=== PATIENT | female | born 1985 | race Hispanic/Latino ===

== ENCOUNTER 2019-11-25 12:08 | Outpatient (CLI) | payer MEDICAID, SELFPAY ==
[2019-11-25] VITALS (10 sets, daily range): BP systolic 106–118; BP diastolic 70–84; PULSE 77–100; RESP 16; TEMP 36.9; O2SAT 100
[2019-11-25 13:18] LABS: Basophils Absolute Auto 0.1 K/mm3 (0.0-0.1); Basophils Percent Auto 0.5 % (0.2-1.2); Eosinophils Absolute Auto 0.2 K/mm3 (0-0.3); Eosinophils Percent Auto 1.7 % (0-4.4); Hematocrit 31.6 % (37.0-47.0); Hemoglobin 10.4 g/dL (12.0-15.0); Immature Granulocyte Absolute 0.14 K/mm3 (0.00-0.031); Immature Granulocyte Percent A 1.2 % (0-0.5); Lymphocytes Absolute Auto 2.57 K/mm3 (0.9-3.2); Lymphocytes Percent Auto 22.3 % (18.3-44.2); Mean Corpuscular HGB Conc 32.9 g/dl (32-36); Mean Corpuscular Hemoglobin 27.7 pg (26-34); Mean Platelet Volume 9.6 fl (7.4-10.4); Monocytes Absolute Auto 0.7 K/mm3 (0.1-0.6); Monocytes Percent Auto 6.2 % (2.6-8.5); Neutrophils Absolute Auto 7.8 K/mm3 (1.3-6.7); Neutrophils Percent Auto 68.1 % (45.5-73.1); Platelet Count Result 337 k/mm3 (150-375); Red Blood Count 3.76 M/mm3 (4.2-5.4); Red Cell Distribution Width 13.3 % (11.5-14.5); White Blood Count 11.5 K/mm3 (4.5-10.0)
[2019-11-25 13:22] LABS: Add Urine Microscopic? YES; Appearance Urine Clear (Clear); Bacteria Urine Trace /hpf; Bilirubin Urine Negative (Negative); Blood Urine Negative (Negative); Color Urine Yellow (Yellow); Glucose Urine UA Negative (Negative); Ketones Urine Negative (Negative); Leukocyte Esterase Ur 1+ LEU/UL (NEGATIVE); Mucus Urine Few /lpf; Nitrate Urine Negative (Negative); Protein Urine 1+ mg/dL (Negative); RBC Urine 0-2 /hpf (0-2); Squamous Epithelial Cell Urine Occasional /hpf (Few); Urobilinogen Urine Negative mg/dL (<2.0)
[2019-11-25 13:28] LABS: Alanine Aminotransferase 13 U/L (4-35); Albumin Level 3.6 g/dL (3.5-5.1); Alkaline Phosphatase 104 U/L (38-126); Aspartate Amino Transferase 17 U/L (14-36); Bilirubin,Total 0.2 mg/dL (0.2-1.3); Blood Urea Nitrogen 8 mg/dL (7-17); Carbon Dioxide 22 mmol/L (22-30); Chloride 106 mmol/L (98-107); Estimated Glomerular Filt Rate > 60; Glucose 70 mg/dL (65-105); Potassium 3.7 mmol/L (3.4-5.0); Sodium 134 mmol/L (137-145); Uric Acid 2.9 mg/dL (2.5-7.5)
[2019-11-25 14:58] LABS: Creatinine Urine 138.5 mg/dL; Total Protein Urine Random 12 mg/dL
== END 2019-11-25 14:40 | disposition home or self-care (01) ==
LOC: ANHOBOP 12:18 → ANHOBPP 12:18
PROVIDERS: Visit Provider Obstetrics & Gynecology
DX: O13.9 Gestational [pregnancy-induced] hypertension without significant proteinuria, unspecified trimester (principal)
CPT/HCPCS: 36415; 59025; 80053; 81001; 82570; 84156; 84550; 85025; 99199

== ENCOUNTER 2020-02-09 11:54 | Outpatient (CLI) | payer OTHER, SELFPAY ==
[2020-02-09] VITALS (7 sets, daily range): BP systolic 128–148; BP diastolic 88–99; PULSE 64–74
[2020-02-09 12:44] LABS: Basophils Absolute Auto 0.1 K/mm3 (0.0-0.1); Basophils Percent Auto 0.6 % (0.2-1.2); Eosinophils Absolute Auto 0.1 K/mm3 (0-0.3); Eosinophils Percent Auto 1.4 % (0-4.4); Hematocrit 34.9 % (37.0-47.0); Hemoglobin 11.6 g/dL (12.0-15.0); Immature Granulocyte Absolute 0.05 K/mm3 (0.00-0.031); Immature Granulocyte Percent A 0.6 % (0-0.5); Lymphocytes Absolute Auto 1.97 K/mm3 (0.9-3.2); Lymphocytes Percent Auto 24.7 % (18.3-44.2); Mean Corpuscular HGB Conc 33.2 g/dl (32-36); Mean Corpuscular Hemoglobin 27.8 pg (26-34); Mean Corpuscular Volume 83.7 fl (80-100); Monocytes Absolute Auto 0.5 K/mm3 (0.1-0.6); Monocytes Percent Auto 6.3 % (2.6-8.5); Neutrophils Absolute Auto 5.3 K/mm3 (1.3-6.7); Neutrophils Percent Auto 66.4 % (45.5-73.1); Platelet Count Result 244 k/mm3 (150-375); Red Blood Count 4.17 M/mm3 (4.2-5.4); Red Cell Distribution Width 13.8 % (11.5-14.5)
[2020-02-09 12:56] LABS: Alanine Aminotransferase 11 U/L (4-35); Albumin Level 3.1 g/dL (3.5-5.1); Alkaline Phosphatase 167 U/L (38-126); Anion Gap 8.1 mmol/L (7-16); Aspartate Amino Transferase 17 U/L (14-36); Bilirubin,Total 0.1 mg/dL (0.2-1.3); Blood Urea Nitrogen 10 mg/dL (7-17); Carbon Dioxide 21 mmol/L (22-30); Chloride 109 mmol/L (98-107); Estimated Glomerular Filt Rate > 60; Glucose 86 mg/dL (65-105); Potassium 4.1 mmol/L (3.4-5.0); Sodium 134 mmol/L (137-145); Uric Acid 4.7 mg/dL (2.5-7.5)
[2020-02-09 13:34] LABS: Creatinine Urine 72.7 mg/dL; Total Protein Urine Random 24 mg/dL
== END 2020-02-09 13:50 | disposition home or self-care (01) ==
LOC: ANHOBOP 11:59 → ANHOBPP 12:00
PROVIDERS: Visit Provider Obstetrics & Gynecology
DX: O13.9 Gestational [pregnancy-induced] hypertension without significant proteinuria, unspecified trimester (principal); Z3A.00 Weeks of gestation of pregnancy not specified
CPT/HCPCS: 36415; 59025; 80053; 82570; 84156; 84550; 85025; 99199

== ENCOUNTER 2020-02-18 12:48 | Outpatient (CLI) | payer OTHER, SELFPAY ==
[2020-02-18 13:18] LABS: Hematocrit 35.7 % (37.0-47.0); Mean Corpuscular HGB Conc 33.6 g/dl (32-36); Mean Corpuscular Hemoglobin 28.1 pg (26-34); Mean Corpuscular Volume 83.6 fl (80-100); Mean Platelet Volume 11.1 fl (7.4-10.4); Platelet Count Result 245 k/mm3 (150-375); Red Blood Count 4.27 M/mm3 (4.2-5.4); Red Cell Distribution Width 13.8 % (11.5-14.5); White Blood Count 7.8 K/mm3 (4.5-10.0)
[2020-02-18 13:29] LABS: Alanine Aminotransferase 10 U/L (4-35); Albumin Level 3.2 g/dL (3.5-5.1); Alkaline Phosphatase 158 U/L (38-126); Anion Gap 7.3 mmol/L (7-16); Aspartate Amino Transferase 19 U/L (14-36); Bilirubin,Total < 0.1 mg/dL (0.2-1.3); Blood Urea Nitrogen 11 mg/dL (7-17); Calcium 8.6 mg/dL (8.4-10.2); Carbon Dioxide 23 mmol/L (22-30); Chloride 108 mmol/L (98-107); Estimated Glomerular Filt Rate > 60; Glucose 74 mg/dL (65-105); Potassium 4.3 mmol/L (3.4-5.0); Sodium 134 mmol/L (137-145); Uric Acid 5.5 mg/dL (2.5-7.5)
[2020-02-18 16:36] LABS: Specific Gravity Ur 1.008; Total Volume 24 Hour Urine 3000 ml
[2020-02-18 19:44] LABS: Total Protein Urine 24 Hr 420 mg/24hr (0-149)
== END 2020-02-18 12:49 | disposition home or self-care (01) ==
PROVIDERS: Visit Provider Obstetrics & Gynecology
DX: O13.9 Gestational [pregnancy-induced] hypertension without significant proteinuria, unspecified trimester (principal); R80.9 Proteinuria, unspecified; Z3A.00 Weeks of gestation of pregnancy not specified
CPT/HCPCS: 36415; 80053; 81050; 84156; 84550; 85027

== ENCOUNTER 2020-02-23 12:05 | Outpatient (CLI) | payer OTHER, SELFPAY ==
[2020-02-23] VITALS (14 sets, daily range): BP systolic 135–169; BP diastolic 85–100; PULSE 58–75; RESP 16; TEMP 36.7
[2020-02-23 12:54] LABS: Basophils Absolute Auto 0.1 K/mm3 (0.0-0.1); Basophils Percent Auto 0.6 % (0.2-1.2); Eosinophils Absolute Auto 0.1 K/mm3 (0-0.3); Hematocrit 34.6 % (37.0-47.0); Hemoglobin 11.8 g/dL (12.0-15.0); Immature Granulocyte Absolute 0.04 K/mm3 (0.00-0.031); Immature Granulocyte Percent A 0.5 % (0-0.5); Lymphocytes Absolute Auto 1.94 K/mm3 (0.9-3.2); Lymphocytes Percent Auto 24.7 % (18.3-44.2); Mean Corpuscular HGB Conc 34.1 g/dl (32-36); Mean Corpuscular Hemoglobin 28.2 pg (26-34); Mean Corpuscular Volume 82.8 fl (80-100); Mean Platelet Volume 11.4 fl (7.4-10.4); Monocytes Absolute Auto 0.5 K/mm3 (0.1-0.6); Monocytes Percent Auto 6.4 % (2.6-8.5); Neutrophils Absolute Auto 5.2 K/mm3 (1.3-6.7); Neutrophils Percent Auto 66.8 % (45.5-73.1); Platelet Count Result 217 k/mm3 (150-375); Red Blood Count 4.18 M/mm3 (4.2-5.4); Red Cell Distribution Width 13.7 % (11.5-14.5); White Blood Count 7.9 K/mm3 (4.5-10.0)
[2020-02-23 13:01] LABS: Add Urine Microscopic? YES; Appearance Urine Cloudy (Clear); Bacteria Urine 4+ /hpf; Bilirubin Urine Negative (Negative); Blood Urine Negative (Negative); Color Urine Yellow (Yellow); Glucose Urine UA Negative (Negative); Ketones Urine Negative (Negative); Leukocyte Esterase Ur Trace LEU/UL (NEGATIVE); Mucus Urine Heavy /lpf; Nitrate Urine Negative (Negative); Protein Urine 3+ mg/dL (Negative); Specific Grav Ur 1.028 (1.001-1.035); Squamous Epithelial Cell Urine Few /hpf (Few); Urobilinogen Urine Negative mg/dL (<2.0); WBC Urine 21-30 /hpf (0-3)
[2020-02-23 13:05] LABS: Alanine Aminotransferase 10 U/L (4-35); Albumin Level 3.1 g/dL (3.5-5.1); Alkaline Phosphatase 160 U/L (38-126); Anion Gap 5 mmol/L (8-16); Aspartate Amino Transferase 19 U/L (14-36); Bilirubin,Total < 0.1 mg/dL (0.2-1.3); Blood Urea Nitrogen 11 mg/dL (7-17); Carbon Dioxide 20 mmol/L (22-30); Chloride 107 mmol/L (98-107); Estimated Glomerular Filt Rate > 60; Glucose 75 mg/dL (65-105); Potassium 4.2 mmol/L (3.4-5.0); Sodium 132 mmol/L (137-145); Uric Acid 5.7 mg/dL (2.5-7.5)
[2020-02-23] MEDS: ACETAMINOPHEN 500 MG TABLET 1000 MG PO (13:36)
[2020-02-23] MEDS: LABETALOL HCL 100 MG TABLET 200 MG PO (13:38)
--- NOTE | 2020-02-23 13:49 | PC.NURSE ---
called Dr. Armenta reported PIH lab result and BP. order received for tylenol and labetalol. will continue to monitor.
--- NOTE | 2020-02-23 14:58 | PC.NURSE ---
called Dr. Armenta updated BP. discharge order received with labetalol Rx.
== END 2020-02-23 15:10 | disposition home or self-care (01) ==
LOC: ANHOBOP 12:11 → ANHLDR 12:14
PROVIDERS: Visit Provider Obstetrics & Gynecology
DX: O13.9 Gestational [pregnancy-induced] hypertension without significant proteinuria, unspecified trimester (principal); Z3A.00 Weeks of gestation of pregnancy not specified
CPT/HCPCS: 36415; 59025; 80053; 81001; 84550; 85025; 87086; 87088; 99199; A9270

== ENCOUNTER 2020-03-01 10:10 | Inpatient (IN) | payer OTHER, SELFPAY ==
--- NOTE | 2020-02-27 13:46 | PM.IMHP ---
H&P: HPI History of Present Illness Date/Time: 02/27/20 13:46 Chief complaint: C Section Narrative: Kayla Rodríguez is a 34 year old female at 37 weeks coming for repeat C section and BTL due to h/o T incision on uterus with prior C section and mild preeclampsia. She also has GDMA1. She denies TEJADA or visual changes. Normal movement. Occasional contractions. No bleeding or leaking fluid. Review of Systems Review of Systems: All systems reviewed & are unremarkable except as noted in HPI and below PMFSH Past Medical History Medical History Anemia delivery delivered Disorder of thyroid Family History Family History Father Hypertension Social History Social History Smoking status: Never smoker Alcohol intake: never Substance use: never Gender identity (if verbalized by the patient): Female Spiritual care concerns: No Meds Home Medications and Allergies Home Medications Medication Instructions Recorded Confirmed Type PNV cmb#95-ferrous fumarate-FA 1 tablet PO 02/16/20 History [] aspirin [Aspirin Childrens] 02/16/20 History ergocalciferol (vitamin D2) 50,000 unit PO WEEKLY 02/16/20 02/16/20 History [Vitamin D2] ferrous sulfate 1 PO 02/16/20 History levothyroxine 25 mcg PO DAILY 02/16/20 02/16/20 History labetalol 200 mg PO Q12H #60 tablet 02/23/20 Rx Allergies Allergy/AdvReac Type Severity Reaction Status Date / Time No Known Allergies Allergy Mild Verified 02/23/20 11:10 Exam Const: General: no acute distress Resp: Auscultation: clear to auscultation bilaterally Cardio: Rate: regular rate Rhythm: regular rhythm GI: Inspection: non-distended GI Palp: Yes Soft to palpation and No Tenderness to palpation present (GI) : Bimanual exam- vagina & uterus: enlarged (gravid) Extrem: Right lower extremity: edema Left lower extremity: edema Psych: Mental Status: mental status grossly normal Assessment and Plan Assessment and plan (1) History of classical section: Code(s): Z98.891 - History of uterine scar from previous surgery Status: Acute Assessment and Plan: Proceed with repeat c section. she signed consent after the risks benefits complications and alternatives were discussed. She expressed understanding and wishes to proceed. (2) Mild preeclampsia: Code(s): O14.00 - Mild to moderate pre-eclampsia, unspecified trimester Status: Acute Assessment and Plan: Laboratory evaluation normal. 24 hour urine consistent with mild preeclampsia. No evidence of severe preeclampsia at this time. We will continue to monitor blood pressures and symptoms closely. (3) Sterilization: Code(s): Z30.2 - Encounter for sterilization Status: Acute Assessment and Plan: She wants BTL along with C section and signed IDPA consent
[2020-03-01] VITALS (71 sets, daily range): BP systolic 127–174; BP diastolic 82–115; PULSE 50–96; RESP 12–18; TEMP 36.5–36.8; O2SAT 97–100; BMI 40.6
--- NOTE | ~2020-03-01 | US_ITS ---
EXAMINATION: US OB limited DATE: 03/01/2020 17:46 INDICATION: Retained placenta. TECHNIQUE: Real-time ultrasound of the pelvis was performed. The interpreting radiologist was not pre sent for the study. COMPARISON: None. FINDINGS: The endometrial complex measures approximately 2.2 cm in thickness. There is mixed hypoechogenicity a nd anechoic fluid within the endometrial canal. No evident internal vascularity on color Doppler. IMPRESSION: 1. Thickened endometrial complex with heterogeneous echogenicity including anechoic fluid within the endometrial canal. Differential would include either clot or retained products of conception. Reviewed, dictated and finalized at location A. IMPRESSION: 1. Thickened endometrial complex with heterogeneous echogenicity including anec hoic fluid within the endometrial canal. Differential would include either clot or retained products of conception.
--- NOTE | 2020-03-01 10:22 | WPDANESEPPF ---
Anes - Initial Pre Proc Eval Procedure: Operation Date: 03/01/20 12:00 Proposed Procedures p Repeat Section with Bilateral Tubal Ligation - Jasmina Armenta MD Date/Time: 03/01/20 10:22 Surgeon: Jasmina Armenta MD Pre Op Diagnosis: C Section Patient Data Age: 34 Gender: F Height: Weight: Allergies Allergy/AdvReac Type Severity Reaction Status Date / Time No Known Allergies Allergy Mild Verified 02/23/20 11:10 Home Medications Medication Instructions Recorded Confirmed Type PNV cmb#95-ferrous fumarate-FA 1 tablet PO 02/16/20 History [] aspirin [Aspirin Childrens] 02/16/20 History ergocalciferol (vitamin D2) 50,000 unit PO WEEKLY 02/16/20 02/16/20 History [Vitamin D2] ferrous sulfate 1 PO 02/16/20 History levothyroxine 25 mcg PO DAILY 02/16/20 02/16/20 History labetalol 200 mg PO Q12H #60 tablet 02/23/20 Rx Patient hx anesthesia problems: none Family hx anesthesia problems: none PMFSH Past Medical History Medical History Anemia delivery delivered Disorder of thyroid Family History Family History Father Hypertension Social History Social History Smoking status: Never smoker Alcohol intake: never Substance use: never Gender identity (if verbalized by the patient): Female Spiritual care concerns: No Anes - Eval Final PreProcedure Day of Procedure 03/01/20 10:22 Patient weight: obese Heart: regular rate and rhythm Lungs: clear to auscultation and normal air movement Airway: Mallampati scale class II Neurological: alert and oriented Last oral intake: >/= 8 hours ASA classification: II Emergent: no Anesthetic plan: proceed Anesthesia type and monitoring: regional spinal Informed Consent: The patient's anesthetic plan and its attendant risks and benefits were discussed with the patient/family/POA. Questions were solicited and answers provided to the satisfaction of the patient/family/POA.
[2020-03-01] MEDS: LACTATED RINGERS 1,000 ML 999 ML IV CONT (10:50)
--- NOTE | 2020-03-01 10:52 | LDADM ---
This patient, Kayla Rodríguez, was admitted to Labor/Delivery/Recovery 119 on 03/01/20 at 10:10. Plans for labor, pain management and were discussed with patient. Patient/family oriented to hospital policies and general routines including ID bracelet, bed and alarms, visiting hours, pain management, procedures, bathroom and other care routines, personal items, smoking policy, room service/diet and guest tray routines, infant security routines, and visiting hours. Patient/Family are encouraged to report perceived risks to care and to ask questions if they do not understand what they are told or what they should do. See OBIX for further documentation.
[2020-03-01 11:02] LABS: Hematocrit 34.9 % (37.0-47.0); Hemoglobin 11.6 g/dL (12.0-15.0); Mean Corpuscular HGB Conc 33.2 g/dl (32-36); Mean Corpuscular Hemoglobin 27.6 pg (26-34); Mean Corpuscular Volume 82.9 fl (80-100); Mean Platelet Volume 11.7 fl (7.4-10.4); Platelet Count Result 214 k/mm3 (150-375); Red Blood Count 4.21 M/mm3 (4.2-5.4); Red Cell Distribution Width 13.8 % (11.5-14.5); White Blood Count 7.7 K/mm3 (4.5-10.0)
[2020-03-01 11:18] LABS: Alanine Aminotransferase 14 U/L (4-35); Albumin Level 3.1 g/dL (3.5-5.1); Alkaline Phosphatase 183 U/L (38-126); Anion Gap 5 mmol/L (8-16); Aspartate Amino Transferase 25 U/L (14-36); Bilirubin,Total 0.3 mg/dL (0.2-1.3); Blood Urea Nitrogen 14 mg/dL (7-17); Calcium 8.4 mg/dL (8.4-10.2); Carbon Dioxide 19 mmol/L (22-30); Chloride 109 mmol/L (98-107); Estimated CRCL calculation 105 ml/min; Estimated Glomerular Filt Rate > 60; Glucose 84 mg/dL (65-105); Potassium 4.2 mmol/L (3.4-5.0); Sodium 133 mmol/L (137-145); Uric Acid 6.6 mg/dL (2.5-7.5)
--- NOTE | 2020-03-01 11:55 | WPDHPUPDATE1 ---
History and Physical Update Update Date/Time: 03/01/20 11:55 History and Physical has been reviewed, including an updated exam of the patient. There are NO changes in the patient's condition. Risks, benefits, and alternatives have been discussed and questions answered. Patient agrees to proceed with procedure.
--- NOTE | 2020-03-01 12:21 | PM.PROC ---
Procedure Note - Detailed Date of procedure: 03/01/20 Pre-op diagnosis: C Section Prior classical C section, mild preeclampsia, desires sterilization Post-op diagnosis: same Procedure performed: Repeat LTCS + BTL Description of procedure: For the procedure she was taken to the operating room where spinal anesthesia was obtained and found to be adequate. She was prepared and draped in the normal sterile fashion in the dorsal supine position with a leftward tilt. A Pfannenstiel skin incision was made over her prior incision with a scalpel and extended to the underlying layer of fascia with the scalpel. The fascia was incised in the midline and extended laterally with Villanueva scissors. The underlying rectus muscles were dissected off bluntly and sharply. The rectus muscles were in the midline. The peritoneum was entered sharply and extended inferiorly and superiorly with good visualization of the bladder. The bladder blade was inserted and the vesicouterine peritoneum was tented up with Metzenbaum scissors and extended laterally. The bladder flap was created sharply. There were some adhesions of the omentum to the anterior abdominal wall which were taken down using the Bovie cautery. Moist lap sponge was placed to hold back the omentum. The lower uterine segment was incised in a transverse fashion with the scalpel and extended inferiorly and superiorly with the stretch in a cephalocaudal direction. The membranes were ruptured with clear fluid noted. The infant's head was delivered atraumatically. The shoulders and body were delivered easily. The cord was clamped x2 and cut and the infant was passed to the waiting nurse. Cord blood gas and cord blood was obtained. The placenta was manually extracted. The uterus was exteriorized and cleared of all clots and debris. The uterine incision was closed using 0 Vicryl in a running locked fashion. There were a couple bleeding points along the incision which were controlled using 0 Vicryl [id number] sutures. Attention was then turned to the right fallopian tube which was grasped with a [place] clamp. The mesial salpinx was cauterized making a small defect with the Bovie cautery. Two free ties of 0 plain gut were placed around the fallopian tube and the intervening segment of tube was excised with excellent hemostasis noted. Attention was then turned to the left fallopian tube which was ligated in a similar fashion. The uterine incision was reinspected and found to be hemostatic. The uterus was returned to the abdomen. The gutters were cleared of all clots and debris. The rectus muscles were inspected any bleeding points were cauterized. The rectus muscles reapproximated using 2 0 Vicryl [id number]-sm-dizqp suture. The fascia was then closed using 0 Vicryl in a running locked fashion. The subcutaneous tissue was irrigated. Any bleeding points were cauterized. The subcutaneous tissue was reapproximated using 2 0 Vicryl xbrnww-ww-ziltn interrupted sutures. The skin was closed using interrupted absorbable dinorah. She tolerated the procedure well. Sponge lap needle instrument counts were correct x2. She was taken to the recovery area in stable condition. Anesthesia: spinal Surgeon: Jamsina Armenta MD Estimated blood loss (mL): 750 Drains: Yes (Marti) Packing: No Pathology: yes Complications: No immediate complications Condition: stable Disposition: PACU Findings: Female infant, cephalic, Apgars 9/9, weight 5#9oz; normal uterus, tubes, and ovaries
[2020-03-01] MEDS: diphenhydrAMINE HCl INJ 50 MG/ML VIAL 12.5 MG IV PUSH (14:31)
[2020-03-01] MEDS: OXYTOCIN 30 UNITS/NS 500 ML 30 UNITS/500 ML BAG 125 UNITS IV CONT (14:32)
[2020-03-01] MEDS: LABETALOL HCL 100 MG TABLET 400 MG PO (15:28)
--- NOTE | 2020-03-01 15:40 | PC.NURSE ---
1505--Reported BP's to Dr. Solomon. Order for 400mg Labetolol BID.
[2020-03-01] MEDS: LACTATED RINGERS 1,000 ML 500 ML IV CONT (16:50)
[2020-03-01 17:14] LABS: Basophils Absolute Auto 0.1 K/mm3 (0.0-0.1); Basophils Percent Auto 0.3 % (0.2-1.2); Eosinophils Percent Auto 0.1 % (0-4.4); Hematocrit 29.2 % (37.0-47.0); Hemoglobin 9.8 g/dL (12.0-15.0); Immature Granulocyte Percent A 0.6 % (0-0.5); Lymphocytes Absolute Auto 1.21 K/mm3 (0.9-3.2); Lymphocytes Percent Auto 7.6 % (18.3-44.2); Mean Corpuscular HGB Conc 33.6 g/dl (32-36); Mean Corpuscular Hemoglobin 28.7 pg (26-34); Mean Corpuscular Volume 85.4 fl (80-100); Monocytes Absolute Auto 0.4 K/mm3 (0.1-0.6); Monocytes Percent Auto 2.3 % (2.6-8.5); Neutrophils Absolute Auto 14.1 K/mm3 (1.3-6.7); Neutrophils Percent Auto 89.1 % (45.5-73.1); Platelet Count Result 191 k/mm3 (150-375); Red Blood Count 3.42 M/mm3 (4.2-5.4); Red Cell Distribution Width 14.1 % (11.5-14.5); White Blood Count 15.9 K/mm3 (4.5-10.0)
[2020-03-01] MEDS: TRANEXAMIC ACID 1,000 MG/10 ML AMPUL 500 MG IV PUSH (17:16)
--- NOTE | 2020-03-01 17:21 | PM.OBPNVD ---
OB - PN: Subj Subjective Date/time seen: 03/01/20 17:21 This patient is a 34-year-old multiparous female who is approximately 3 hours post from a delivery. I was called to evaluate bleeding. upon arrival the bleeding was pretty much resolved. . Patient had an approximately 400 cc of blood since the . Approximately a 1L+was lost during the . She had been given 1000 mcg of Cytotec rectally. We elected to give her 500 of tranexamic acid as well to prevent any further bleeding. Will continue to observe. OB - PN: Obj Data Labs CBC & Chem 7: 03/01/20 10:45 03/01/20 10:45 Labs: Laboratory Results - last 24 hr 03/01/20 03/01/20 03/01/20 10:45 10:45 10:45 WBC 7.7 RBC 4.21 Hgb 11.6 L Hct 34.9 L MCV 82.9 MCH 27.6 MCHC 33.2 RDW 13.8 Plt Count 214 MPV 11.7 H Sodium 133 L Potassium 4.2 Chloride 109 H Carbon Dioxide 19 L Anion Gap 5 L BUN 14 Creatinine 0.70 Estim Creat Clear Calc 105 Estimated GFR > 60 Glucose 84 Uric Acid 6.6 Calcium 8.4 Total Bilirubin 0.3 AST 25 ALT 14 Alkaline Phosphatase 183 H Total Protein 6.0 L Albumin 3.1 L Blood Type O Positive Antibody Screen Negative OB - PN A/P Time Spent With Patient Time: Total time spent is greater than 50% in coordination of care (as documented) at patient's floor/unit and/or counseling patient:
[2020-03-01 17:27] LABS: Partial Thromboplastin Time 28.9 SECONDS (22.3-36.8)
[2020-03-01 17:33] LABS: Fibrinogen 344 mg/dl (215-510)
[2020-03-01 17:53] LABS: D Dimer 5.02 ug/mL (<0.48)
--- NOTE | 2020-03-01 18:03 | PC.NURSE ---
1640--Team OB called. Large amount of small clots upon fundal massage.
--- NOTE | 2020-03-01 18:05 | PC.NURSE ---
Addendum entered by Stephanie Bill RN 03/01/20 18:12: time of call 1643 Original Note: Dr. Armenta called. Cytote order received and direction to call Dr. Bullock for further assistance.
--- NOTE | 2020-03-01 18:07 | PC.NURSE ---
165--Dr Bullock called to assess patient.
--- NOTE | 2020-03-01 18:09 | PC.NURSE ---
1710--Dr. Bullock in unit. Pt stable and awaiting bedside US. Will update Dr. Bullock.
--- NOTE | 2020-03-01 18:13 | PC.NURSE ---
1720--Reported to Dr. Bullock additional 378 QBL. Fundus firm; bleeding minimal;pt resting comfortably.
--- NOTE | 2020-03-01 19:24 | PC.NURSE ---
1726 Ultrasound at bedside.
[2020-03-01] MEDS: DEXTROSE 5%/0.45% SOD CHL 1,000 ML 125 ML IV CONT (21:27)
[2020-03-01] MEDS: LABETALOL HCL 100 MG TABLET 200 MG PO (21:29)
[2020-03-02] VITALS (7 sets, daily range): BP systolic 118–125; BP diastolic 72–82; PULSE 64–90; RESP 16–18; TEMP 36.2–37.5; O2SAT 96–98
[2020-03-02 05:43] LABS: Basophils Percent Auto 0.1 % (0.2-1.2); Immature Granulocyte Percent A 0.6 % (0-0.5); Lymphocytes Absolute Auto 2.39 K/mm3 (0.9-3.2); Lymphocytes Percent Auto 15.1 % (18.3-44.2); Mean Corpuscular HGB Conc 33.5 g/dl (32-36); Mean Corpuscular Hemoglobin 28.2 pg (26-34); Mean Corpuscular Volume 84.3 fl (80-100); Mean Platelet Volume 11.9 fl (7.4-10.4); Monocytes Percent Auto 6.2 % (2.6-8.5); Neutrophils Absolute Auto 12.4 K/mm3 (1.3-6.7); Platelet Count Result 162 k/mm3 (150-375); Red Blood Count 2.48 M/mm3 (4.2-5.4); Red Cell Distribution Width 13.7 % (11.5-14.5); White Blood Count 15.9 K/mm3 (4.5-10.0)
[2020-03-02 05:58] LABS: Hematocrit 20.9 % (37.0-47.0)
[2020-03-02] MEDS: DEXTROSE 5%/0.45% SOD CHL 1,000 ML 125 ML IV CONT (06:42)
[2020-03-02] MEDS: LEVOTHYROXINE SODIUM 25 MCG TABLET PO (06:43)
[2020-03-02 07:11] LABS: Rapid Plasma Reagin Non-Reactive (NonReactive)
--- NOTE | 2020-03-02 07:53 | WPDANLDPN2 ---
Anes-Prog Note L&D Date/Time: 03/02/20 07:53 Comfortable throughout: section Neuraxial method: spinal Epidural/Spinal procedure site: clean & non-tender Neuro status: Neuro function grossly intact. Cardiovascular status: normal Respiratory status: normal Airway patency: baseline Mental status: baseline Post-Op hydration status: normal Vital Signs: Last Vital Signs Temp 36.2 C L 03/02/20 04:20 Pulse 75 03/02/20 04:20 Resp 16 03/02/20 04:20 BP 121/76 03/02/20 04:20 Pulse Ox 96 03/02/20 04:20 I/O: Intake & Output 03/01/20 03/01/20 03/02/20 15:59 23:59 07:59 Intake Total 1300 1790 Output Total 194 664 1561 Balance -150 1015 -1010 Post-procedural complaints: pruritis moderate, treatment effective Patient feedback: Patient satisfied with anesthetic care.
--- NOTE | 2020-03-02 07:54 | WPDANLDNPN2 ---
Anes-Prog Note L&D-Neuraxial Date/Time: 03/02/20 07:54 Neuraxial medications: intrathecal PF morphine Opiod-related complaints: pruritis moderate, treatment effective Patient feedback: Patient satisfied with post-operative pain management.
--- NOTE | 2020-03-02 08:29 | PM.OBPNVD ---
OB - PN: Subj Subjective Date/time seen: 03/02/20 08:29 Patient comments: no complaints, pain well controlled, tolerating diet and flatus present OB - PN: Obj Data Labs CBC & Chem 7: 03/02/20 04:27 03/01/20 10:45 Labs: Laboratory Results - last 24 hr 03/01/20 03/01/20 03/01/20 10:45 10:45 10:45 WBC 7.7 RBC 4.21 Hgb 11.6 L Hct 34.9 L MCV 82.9 MCH 27.6 MCHC 33.2 RDW 13.8 Plt Count 214 MPV 11.7 H Immature Gran % (Auto) Neut % (Auto) Lymph % (Auto) Mclean % (Auto) Eos % (Auto) Baso % (Auto) Lymph # (Auto) Mclean # (Auto) Eos # (Auto) Baso # (Auto) Abs Immat Gran (auto) Absolute Neuts (auto) Absolute Nucleated RBC Nucleated RBC % PT INR APTT Fibrinogen D-Dimer Sodium Potassium Chloride Carbon Dioxide Anion Gap BUN Creatinine Estim Creat Clear Calc Estimated GFR Glucose Uric Acid Calcium Total Bilirubin AST ALT Alkaline Phosphatase Total Protein Albumin RPR Non-reactive Blood Type O Positive Antibody Screen Negative 03/01/20 03/01/20 03/01/20 10:45 17:03 17:03 WBC 15.9 H RBC 3.42 L Hgb 9.8 L Hct 29.2 L MCV 85.4 MCH 28.7 MCHC 33.6 RDW 14.1 Plt Count 191 MPV 11.0 H Immature Gran % (Auto) 0.6 H Neut % (Auto) 89.1 H Lymph % (Auto) 7.6 L Mclean % (Auto) 2.3 L Eos % (Auto) 0.1 Baso % (Auto) 0.3 Lymph # (Auto) 1.21 Mclean # (Auto) 0.4 Eos # (Auto) 0.0 Baso # (Auto) 0.1 Abs Immat Gran (auto) 0.10 H Absolute Neuts (auto) 14.1 H Absolute Nucleated RBC 0.0 Nucleated RBC % 0.0 PT 13.0 INR 1.0 APTT 28.9 Fibrinogen 344 D-Dimer 5.02 H Sodium 133 L Potassium 4.2 Chloride 109 H Carbon Dioxide 19 L Anion Gap 5 L BUN 14 Creatinine 0.70 Estim Creat Clear Calc 105 Estimated GFR > 60 Glucose 84 Uric Acid 6.6 Calcium 8.4 Total Bilirubin 0.3 AST 25 ALT 14 Alkaline Phosphatase 183 H Total Protein 6.0 L Albumin 3.1 L RPR Blood Type Antibody Screen 03/02/20 04:27 WBC 15.9 H RBC 2.48 L Hgb 7.0 L Hct 20.9 L* MCV 84.3 MCH 28.2 MCHC 33.5 RDW 13.7 Plt Count 162 MPV 11.9 H Immature Gran % (Auto) 0.6 H Neut % (Auto) 78.0 H Lymph % (Auto) 15.1 L Mclean % (Auto) 6.2 Eos % (Auto) 0.0 Baso % (Auto) 0.1 L Lymph # (Auto) 2.39 Mclean # (Auto) 1.0 H Eos # (Auto) 0.0 Baso # (Auto) 0.0 Abs Immat Gran (auto) 0.10 H Absolute Neuts (auto) 12.4 H Absolute Nucleated RBC 0.0 Nucleated RBC % 0.0 PT INR APTT Fibrinogen D-Dimer Sodium Potassium Chloride Carbon Dioxide Anion Gap BUN Creatinine Estim Creat Clear Calc Estimated GFR Glucose Uric Acid Calcium Total Bilirubin AST ALT Alkaline Phosphatase Total Protein Albumin RPR Blood Type Antibody Screen Imaging Radiologist's impression: Impressions Obstetrics Ultrasound 03/01/20 17:51 IMPRESSION: 1. Thickened endometrial complex with heterogeneous echogenicity including anechoic fluid within the endometrial canal. Differential would include either clot or retained products of conception. OB - PN A/P Plan day: 1 Comments: Post Op LTCS - no problems, routine recovery, bleeding resolved, U/S nonspecific - clot vs. retained poc's. to observe Time Spent With Patient Time: Total time spent is greater than 50% in coordination of care (as documented) at patient's floor/unit and/or counseling patient: Exam Const: General: cooperative, healthy appearing, comfortable and no acute distress Resp: Auscultation: no crackles, no rales, no rhonchi and no wheezes Cardio: Rhythm: regular rhythm Heart sounds: no click and no murmurs GI: Inspection: non-distended Auscultation: normal bowel sounds Extrem: General: normal to inspection, no p
[2020-03-02] MEDS: MULTIVIT/MIN/PREN/FOL AC/IRON TABLET 1 TAB PO (09:01)
[2020-03-02] MEDS: POLYSACCHARIDE IRON COMPLEX 150 MG CAPSULE PO ×2 (09:01→16:41)
[2020-03-02] MEDS: LABETALOL HCL 100 MG TABLET 400 MG PO ×2 (09:01→20:57)
[2020-03-02] MEDS: DOCUSATE SODIUM 100 MG CAPSULE PO ×2 (09:01→16:42)
[2020-03-02] MEDS: IBUPROFEN 600 MG TABLET PO (10:12)
--- NOTE | 2020-03-02 19:22 | PC.NURSE ---
While doing fundal exam pt noted to have belly binder on. Upon taking binder off scant amount of bright red blood was noted on both band and pad of pt. Upon further looking it was noted that pts incision was source of bleeding. Informed pt to keep band off for this evening and we will re-evaluate incision later on. Will continue to monitor.
[2020-03-03 06:12] LABS: Hematocrit 20.2 % (37.0-47.0); Hemoglobin 6.8 g/dL (12.0-15.0)
[2020-03-03 07:30] VITALS: BP 138/83; PULSE 88; RESP 18; TEMP 36.7; O2SAT 97
[2020-03-03] MEDS: LEVOTHYROXINE SODIUM 25 MCG TABLET PO (07:36)
[2020-03-03] MEDS: DOCUSATE SODIUM 100 MG CAPSULE PO ×2 (07:36→15:29)
[2020-03-03] MEDS: POLYSACCHARIDE IRON COMPLEX 150 MG CAPSULE PO ×2 (07:37→15:29)
[2020-03-03] MEDS: SIMETHICONE 80 MG TAB.CHEW PO (07:37)
--- NOTE | 2020-03-03 07:47 | P.PNOB_ITS ---
OB - PN: Subj Subjective Date/time seen: 03/03/20 07:47 Patient comments: no complaints, pain well controlled, tolerating diet, flatus present and other (Ambulating and voiding without problems. ) baby status: doing well Narrative: No Cp, SOB, dizziness. Lochia less than menses today. OB - PN: Obj Data Labs CBC & Chem 7: 03/03/20 05:30 03/01/20 10:45 Labs: Laboratory Results - last 24 hr 03/03/20 05:30 Hgb 6.8 L* Hct 20.2 L* OB - PN A/P Assessment and Plan (1) hemorrhage: Code(s): O72.1 - Other immediate hemorrhage Status: Acute Assessment and Plan: Now with anemia but H&H stable since yesterday morning. Asymptomatic and lochia now less than menses. Observe vitals closely today and for symptoms of anemia but no transfusion needed for now. Possible discharge tomorrow (2) Mild preeclampsia: Code(s): O14.00 - Mild to moderate pre-eclampsia, unspecified trimester Status: Acute Assessment and Plan: BP has improved but could be due to anemia so continue to observe Plan day: 2 (s/p C section, doing well) Plan: routine care Time Spent With Patient Time: Total time spent is greater than 50% in coordination of care (as docu mented) at patient's floor/unit and/or counseling patient: Exam Const: General: no acute distress Resp: Auscultation: clear to auscultation bilaterally Cardio: Rate: regular rate Rhythm: regular rhythm GI: Inspection: non-distended, incision (Intact without erythema, drainage, or induration) and other (Fundus firm and nontender below umbilicus) GI Palp: Yes abdominal tenderness (appropriate) and Yes Soft to palpation Extrem: General: no edema
[2020-03-03 08:31] VITALS: PULSE 80
[2020-03-03] MEDS: LABETALOL HCL 100 MG TABLET 400 MG PO ×2 (08:31→21:17)
[2020-03-03] MEDS: MULTIVIT/MIN/PREN/FOL AC/IRON TABLET 1 TAB PO (08:32)
[2020-03-03] MEDS: IBUPROFEN 600 MG TABLET PO ×3 (08:33→21:17)
[2020-03-03 12:30] VITALS: BP 141/92; PULSE 92; RESP 18; TEMP 37; O2SAT 98
[2020-03-03 15:10] VITALS: BP 131/81; PULSE 80; RESP 16; TEMP 36.8; O2SAT 100
[2020-03-03 21:00] VITALS: BP 153/92; PULSE 84; RESP 14; TEMP 37.4; O2SAT 100
[2020-03-03 21:17] VITALS: PULSE 85
[2020-03-04] VITALS (16 sets, daily range): BP systolic 129–156; BP diastolic 83–97; PULSE 84–115; RESP 16–20; TEMP 36.6–37; O2SAT 98–100
[2020-03-04] MEDS: IBUPROFEN 600 MG TABLET PO ×3 (03:32→21:01)
[2020-03-04 05:09] LABS: Hematocrit 19.4 % (37.0-47.0); Hemoglobin 6.5 g/dL (12.0-15.0)
[2020-03-04] MEDS: SIMETHICONE 80 MG TAB.CHEW PO ×2 (07:45→17:24)
[2020-03-04] MEDS: POLYSACCHARIDE IRON COMPLEX 150 MG CAPSULE PO ×2 (07:45→17:23)
[2020-03-04] MEDS: MULTIVIT/MIN/PREN/FOL AC/IRON TABLET 1 TAB PO (07:45)
[2020-03-04] MEDS: LEVOTHYROXINE SODIUM 25 MCG TABLET PO (07:45)
--- NOTE | 2020-03-04 07:51 | P.PNOB_ITS ---
OB - PN: Subj Subjective Date/time seen: 03/04/20 07:51 Patient comments: pain well controlled, tolerating diet, flatus present and other (Lochia less than menses. She has felt dizzy and lightheaded the last couple times with ambulation. Voiding without problems) baby status: doing well OB - PN: Obj Data Labs CBC & Chem 7: 03/04/20 04:55 03/01/20 10:45 Labs: Laboratory Results - last 24 hr 03/04/20 04:55 Hgb 6.5 L* Hct 19.4 L* OB - PN A/P Assessment and Plan (1) hemorrhage: Code(s): O72.1 - Other immediate hemorrhage Status: Acute Assessment and Plan: Slight decrease in hemoglobin, now symptomatic so she agrees to receive 2 units PRBCs. Plan day: 3 (s/p section, doing well and ready to be discharged home) Plan: routine care and other Time Spent With Patient Time: Total time spent is greater than 50% in coordination of care (as docume nted) at patient's floor/unit and/or counseling patient: Exam Const: General: no acute distress Resp: Auscultation: clear to auscultation bilaterally Cardio: Rate: regular rate Rhythm: regular rhythm GI: Inspection: non-distended, incision (Intact without erythema, drainage, or induration) and other (Fundus firm and nontender below umbilicus) GI Palp: Yes abdominal tenderness (appropriate) and Yes Soft to palpation Extrem: General: no edema
[2020-03-04] MEDS: LABETALOL HCL 100 MG TABLET 400 MG PO ×2 (09:49→21:00)
[2020-03-04] MEDS: DOCUSATE SODIUM 100 MG CAPSULE PO (17:23)
[2020-03-04 22:18] LABS: Hematocrit 28.2 % (37.0-47.0); Hemoglobin 9.4 g/dL (12.0-15.0)
[2020-03-05] MEDS: IBUPROFEN 600 MG TABLET PO ×2 (04:06→10:18)
[2020-03-05] MEDS: LEVOTHYROXINE SODIUM 25 MCG TABLET PO (06:43)
--- NOTE | 2020-03-05 07:36 | PM.OBPNVD ---
OB - PN: Subj Subjective Date/time seen: 03/05/20 07:36 Patient comments: no complaints, pain well controlled, tolerating diet, flatus present and other (Lochia less than menses. Ambulating and voiding without problems) baby status: doing well Narrative: No TEJADA/visual changes. Lochia less than menses. No further dizziness after receiving blood. No CP, SOB. OB - PN: Obj Data Labs CBC & Chem 7: 03/04/20 22:06 03/01/20 10:45 Labs: Laboratory Results - last 24 hr 03/01/20 03/04/20 10:45 22:06 Hgb 9.4 L Hct 28.2 L Blood Type O Positive Antibody Screen Negative Crossmatch See Detail OB - PN A/P Assessment and Plan (1) Mild preeclampsia: Code(s): O14.00 - Mild to moderate pre-eclampsia, unspecified trimester Status: Acute Assessment and Plan: BP mildly elevated, asymptomatic. Continue latebalol for now Plan day: 4 (s/p section, doing well and ready to be discharged home) Plan: routine care, discharge home and other (Follow up in office in 1 week) Time Spent With Patient Time: Total time spent is greater than 50% in coordination of care (as documented) at patient's floor/unit and/or counseling patient: Time with patient: less than 15 minutes Exam Const: General: no acute distress Resp: Auscultation: clear to auscultation bilaterally Cardio: Rate: regular rate Rhythm: regular rhythm GI: Inspection: non-distended, incision (Intact without erythema, drainage, or induration) and other (Fundus firm and nontender below umbilicus) GI Palp: Yes abdominal tenderness (appropriate) and Yes Soft to palpation Extrem: General: no edema
--- NOTE | 2020-03-05 07:37 | PM.OBDSVD ---
DS: Admitting Diagnosis Admitting Diagnosis Admitting Diagnosis: C Section DS: Discharge Diagnosis Discharge Diagnosis (1) Mild preeclampsia: Code(s): O14.00 - Mild to moderate pre-eclampsia, unspecified trimester Status: Acute (2) History of classical section: Code(s): Z98.891 - History of uterine scar from previous surgery Status: Acute OB - DS: Summary OB Procedures : PIH Mgmt OB Procedures Intrapartum: OB Procedures: : Transfusion (2 units PRBCs) Peripartum Data Infant Delivery Method: Section Procedures: Procedures Operation Date: 03/01/20 12:00 Actual Procedures Side Surgeon p Section Jasmina Armenta MD complications: transfusion Status at Discharge Functional status at discharge: independent ambulation Overall status at discharge: patient is progressing back to baseline Time Spent with Patient Time attestation: Total time spent providing and/or coordinating discharge services: Time spent: Less than 30 minutes DS: Data Data Completed and Pending Completed studies during hospitalization: Pending at discharge 03/01/20 12:42 Surgical [PTH] Routine Labs on day of discharge: Labs from last 24 hours 03/04/20 03/01/20 22:06 10:45 Hgb 9.4 L Hct 28.2 L Blood Type O Positive Antibody Screen Negative Crossmatch See Detail Discharge Plan Discharge Attending physician on discharge: Jasmina Armenta Discharging Clinician: Jasmina Armenta Patient Disposition: Home, Self-Care Activity: may shower and pelvic rest Diet: regular Wound Care Instructions: incision open to air Patient Instructions: Antibiotic Form Stand Alone Forms: General Discharge Information Follow-up/Referrals: Jasmina Armenta MD [Physician] - 1 Week Discharge Medications: New hydrocodone-acetaminophen 5-325 mg Tablet 1 tablet PO Q4H PRN (Reason: Moderate Pain (4-6)) Qty: 30 RF: 0 ibuprofen 600 mg Tablet 600 mg PO Q6H PRN (Reason: Cramping) Qty: 60 RF: 0 Continued levothyroxine 25 mcg Tablet 25 mcg PO DAILY RF: 0 ferrous sulfate 325 mg (65 mg iron) Tablet 325 mg/kg PO DAILY RF: 0 ergocalciferol (vitamin D2) [Vitamin D2] 1,250 mcg (50,000 unit) Capsule 50,000 unit PO WEEKLY RF: 0 PNV cmb#[id number]-ferrous fumarate-FA [] 28 mg iron- 800 mcg Tablet 1 tablet PO DAILY RF: 0 labetalol 200 mg Tablet 200 mg PO Q12H Qty: 60 RF: 0 Discontinued aspirin [Aspirin Childrens] 81 mg Tablet,Chewable 1 tablet PO DAILY RF: 0 Date of admission: 03/01/20 10:10 Primary Care Provider: PHYSICIAN,[employer]ENDER Admitting Provider: Jasmina Armenta Attending physician on admission: Jasmina Armenta
[2020-03-05 08:00] VITALS: BP 142/86; PULSE 113; RESP 20; TEMP 36.8
[2020-03-05 09:12] VITALS: PULSE 80
[2020-03-05] MEDS: POLYSACCHARIDE IRON COMPLEX 150 MG CAPSULE PO (09:12)
[2020-03-05] MEDS: MULTIVIT/MIN/PREN/FOL AC/IRON TABLET 1 TAB PO (09:12)
[2020-03-05] MEDS: DOCUSATE SODIUM 100 MG CAPSULE PO (09:12)
[2020-03-05] MEDS: SIMETHICONE 80 MG TAB.CHEW PO (09:12)
[2020-03-05] MEDS: LABETALOL HCL 100 MG TABLET 400 MG PO (09:12)
--- NOTE | 2020-03-05 09:37 | PC.NURSE ---
Self care and infant care discharge instructions given including follow up visit date and time. No questions or concerns verbalized. Very pleasant and cooperative. at side.
== END 2020-03-05 10:25 | disposition home or self-care (01) | DRG 540 ==
LOC: ANHLDR 10:14 → ANHOB2 16:18
PROVIDERS: Obstetrics & Gynecology; Admitting Provider Obstetrics & Gynecology; Visit Provider Obstetrics & Gynecology
PROC: 10D00Z1 Extraction of Products of Conception, Low, Open Approach (ICD-10-PCS; CPT 59514; principal; 2020-03-01 12:00)
DX: O34.211 Maternal care for low transverse scar from previous cesarean delivery (principal); O14.04 Mild to moderate pre-eclampsia, complicating childbirth; Z30.2 Encounter for sterilization; O24.429 Gestational diabetes mellitus in childbirth, unspecified control; O72.1 Other immediate postpartum hemorrhage; O99.214 Obesity complicating childbirth; E66.9 Obesity, unspecified; Z3A.37 37 weeks gestation of pregnancy; Z37.0 Single live birth
CPT/HCPCS: 36415; 36430; 76815; 80053; 84550; 85014; 85018; 85025; 85027; 85380; 85384; 85610; 85730; 86592; 86850; 86900; 86901; 86920; 88302; 88307; A9270; J0131; J1100; J1200; J2274; J2370; J2405; J2590; J7030; J7120; P9016

== ENCOUNTER 2020-04-22 11:45 | Outpatient (CLI) | payer OTHER, SELFPAY ==
[2020-04-22 12:46] LABS: Glucose 2 Hour PP 98 mg/dL (>=155)
[2020-04-22 13:34] LABS: Glucose 2 Hour PP 111 mg/dL (>=155)
[2020-04-22 14:30] LABS: Glucose 2 Hour PP 106 mg/dL (>=155)
== END 2020-04-22 11:46 | disposition home or self-care (01) ==
LOC: ANHLAB 11:47
PROVIDERS: PCP Obstetrics & Gynecology; Visit Provider Obstetrics & Gynecology
DX: Z86.32 Personal history of gestational diabetes (principal)
CPT/HCPCS: 36415; 82947

== ENCOUNTER 2021-10-11 14:19 | Outpatient (CLI) | payer OTHER, SELFPAY ==
--- NOTE | ~2021-10-11 | US_ITS ---
EXAMINATION: US breast RT limited HISTORY: Pain of the outer right breast TECHNIQUE: Limited right breast ultrasound performed. FINDINGS: There is a 6 mm x 5 mm oval, hypoechoic mass with indistinct and angular margins, no engineering librarian ior features, and no internal vascularity at the 9:00 location 6 cm from the nipple. IMPRESSION: Indeterminate right breast mass. Ultrasound-guided biopsy is recommended. BI-RADS category 4, suspicious findings. Reviewed, dictated and finalized at location A.
== END 2021-10-11 14:20 | disposition home or self-care (01) ==
PROVIDERS: PCP Obstetrics & Gynecology; Visit Provider Obstetrics & Gynecology
DX: N64.4 Mastodynia (principal); R92.8 Other abnormal and inconclusive findings on diagnostic imaging of breast
CPT/HCPCS: 76642